=== PATIENT | male | born 1985 | race Caucasian/White ===

== ENCOUNTER 2024-03-13 23:16 | Emergency (ER) | payer SELFPAY ==
[~2024-03-13] VITALS: Ht 185.4 cm; Wt 109.0 kg
[2024-03-13 23:26] VITALS: O2SAT 98
[2024-03-13 23:41] VITALS: BP 132/78; PULSE 79; TEMP 98.6; O2SAT 95
[2024-03-14] MEDS: METHOCARBAMOL 750MG TABLET PO SCH (01:04)
[2024-03-14] MEDS: ACETAMINOPHEN 325MG TABLET PO ONE (01:04)
[2024-03-14] MEDS ORDERED: LIDO700A15 TP (02:22)
[2024-03-14] MEDS ORDERED: AMOX1TAB16 MT (02:22)
[2024-03-14] MEDS ORDERED: TOPUD PO (02:22)
[2024-03-14] MEDS ORDERED: METH-653 MT (02:22)
[2024-03-14] MEDS ORDERED: IBUP-2028 MT (02:22)
[2024-03-14 02:36] VITALS: RESP 16
== END 2024-03-14 02:35 | disposition home or self-care (01) ==
LOC: ER 23:16
DX: S13.4XXA Sprain of ligaments of cervical spine, initial encounter (principal); H66.92 Otitis media, unspecified, left ear; J32.9 Chronic sinusitis, unspecified; V49.49XA Driver injured in collision with other motor vehicles in traffic accident, initial encounter; Y93.89 Activity, other specified; Y92.89 Other specified places as the place of occurrence of the external cause; Y99.8 Other external cause status
CPT/HCPCS: 71101; 73030; 99284

== ENCOUNTER 2025-04-02 21:02 | Emergency (ER) | payer MEDICAID ==
[~2025-04-02] VITALS: Ht 177.8 cm; Wt 152.0 kg
[~2025-04-02 21:02] MED LIST: AMOX1TAB16 MT; IBUP-2028 MT; LIDO-53 TP; METH-653 MT; TOPUD PO
[2025-04-02 21:15] VITALS: O2SAT 97
[2025-04-02] MEDS: ACETAMINOPHEN 325MG TABLET PO ONE (22:06)
[2025-04-02 22:08] VITALS: RESP 20
[2025-04-02] MEDS: KETOROLAC 30MG/ML VIAL IM ONE (22:08)
[2025-04-02] MEDS ORDERED: CIPHCO RIGHT EAR (22:44)
[2025-04-02] MEDS ORDERED: AMOX1TAB16 MT (22:44)
[2025-04-02] MEDS ORDERED: IBUP-2030 MT (22:57)
[2025-04-02 22:58] VITALS: BP 166/82; PULSE 95; TEMP 36.9; O2SAT 97
== END 2025-04-02 23:03 | disposition home or self-care (01) ==
LOC: ER 21:02
DX: H60.509 Unspecified acute noninfective otitis externa, unspecified ear (principal)
CPT/HCPCS: 99283; 96372; J1885